=== PATIENT | male | born 1990 | race American Indian/Alaskan Native ===

== ENCOUNTER 2021-11-30 22:52 | Emergency (ER) | payer OTHER ==
[2021-11-30 22:58] VITALS: BP 92/50
[2021-11-30] MEDS ORDERED: ACETAMINOPHEN 325 MG TAB PO ONE (22:58)
[2021-11-30] MEDS ORDERED: IBUPROFEN 600 MG TAB PO ONE (22:58)
--- NOTE | 2021-11-30 23:45 | XRay Report ---
Left foot 3 views INDICATION: Fifth toe pain FINDINGS: MTP joints appear intact. No acute bone findings are noted. No focal soft tissue abnormalit y is seen. No bony destructive change is seen at this time. Signer Name: Otis Zavala MD Signed: 11/30/2021 11:40 PM Workstation Name: [id number]
[2021-12-01] MEDS ORDERED: TETANUS,DIPH,PERTUSS(ACELL) VACCINE 0.5 ML SYRINGE IM ONE (03:00)
[2021-12-01] MEDS ORDERED: LIDOCAINE (2%) 20 MG/1 ML VIAL 20 ML MDV INFILTRATI STA (03:00)
--- NOTE | 2021-12-01 05:13 | Emergency Department Report ---
ED Upper Extremity Inj HPI - General Chief Complaint: Laceration/Recheck/Suture Stated Complaint: LEFT TOE LACERATION Time Seen by Provider: 12/01/21 03:46 Source: patient Mode of arrival: Ambulatory Limitations: No Limitations - Related Data Previous Rx's Medication Instructions Recorded Last Taken Type Acetaminophen/Codeine [Tylenol 1 tab PO Q6H PRN #14 tab 12/01/21 Unknown Rx /Codeine # 3 tab] cephALEXin [Keflex] 500 mg PO Q8HR #21 cap 12/01/21 Unknown Rx Allergies Allergy/AdvReac Type Severity Reaction Status Date / Time No Known Allergies Allergy Verified 12/01/21 05:07 ED Review of Systems ROS: Stated complaint: LEFT TOE LACERATION Other details as noted in HPI ED Past Medical Hx - Past Medical History Previous Medical History?: Yes Hx Asthma: Yes - Surgical History Past Surgical History?: No - Medications Home Medications: Home Medications Medication Instructions Recorded Confirmed Last Taken Type Acetaminophen/Codeine [Tylenol 1 tab PO Q6H PRN #14 tab 12/01/21 Unknown Rx /Codeine # 3 tab] cephALEXin [Keflex] 500 mg PO Q8HR #21 cap 12/01/21 Unknown Rx ED Physical Exam - General Limitations: No Limitations ED Course Vital Signs 11/30/21 12/01/21 22:55 05:21 Temperature 97.3 F L Pulse Rate 78 78 Respiratory 16 16 Rate Blood Pressure 92/50 92/50 [Left] O2 Sat by Pulse 100 100 Oximetry Critical care attestation.: If time is entered above; I have spent that time in minutes in the direct care of this critically ill patient, excluding procedure time. ED Disposition Clinical Impression: Toe laceration, Tetanus toxoid inoculation Disposition: 01 HOME / SELF CARE / HOMELESS Condition: Stable Instructions: VIS, Tetanus, Diphtheria (Td); Tetanus, Diphtheria, Pertussis (Tdap) - CDC, Sutured Wound Care, [id number] Prescriptions: cephALEXin [Keflex] 500 mg PO Q8HR #21 cap Acetaminophen/Codeine [Tylenol /Codeine # 3 tab] 1 tab PO Q6H PRN #14 tab PRN Reason: Pain , Severe (7-10) Referrals: [facility] [Provider Group] - 3-5 Days
== END 2021-12-01 05:22 | disposition home or self-care (01) ==
LOC: ED 22:52
DX: S91.115A Laceration without foreign body of left lesser toe(s) without damage to nail, initial encounter (principal); W22.8XXA Striking against or struck by other objects, initial encounter; Y93.02 Activity, running; Y92.89 Other specified places as the place of occurrence of the external cause; Y99.8 Other external cause status
CPT/HCPCS: 73630; 90471; 90715; 99283; J3490